=== PATIENT | female | born 1975 | race Caucasian/White ===

== ENCOUNTER 2016-08-21 16:32 | Inpatient (IN) | payer OTHER ==
[~2016-08-21] VITALS: Ht 162.6 cm; Wt 103.5 kg
[~2016-08-21 16:32] MED LIST: AMO500 PO; CEPH-443 PO; NAPR-260 PO; NORG1TAB14 PO; ONDA4TAB8 PO; PROM6.25 PO
[2016-08-21] MEDS ORDERED: SOD CHLORIDE 0.9% 250 ML IV ONE (20:34)
[2016-08-21 21:02] LABS: HEMATOCRIT 16.9 % (37.0-47.0); MEAN CORPUSCULAR HEMOGLOBIN 29.6 pg (29.0-33.0); MEAN CORPUSCULAR HGB CONC 32.7 g/dl (32.0-37.0); MEAN CORPUSCULAR VOLUME 90.4 fl (82.0-101.0); MEAN PLATELET VOLUME 8.6 fl (7.4-10.4); PLATELET COUNT 252 10^3/UL (140-440); RED BLOOD COUNT 1.87 10^6/ul (4.20-5.40); RED CELL DISTRIBUTION WIDTH 14.9 % (11.5-14.5)
[2016-08-21 21:11] LABS: ALBUMIN 3.8 g/dl (3.3-4.9); CONDITION 1; INR 0.93; LH ANALYZER COMMENTS 1; POTASSIUM 3.9 mmol/L (3.5-5.1); PROTIME 12.5 Sec (12.2-14.2)
[2016-08-21 21:12] LABS: PARTIAL THROMBOPLASTIN TIME 21.6 Sec (25.0-35.0)
[2016-08-21 21:13] LABS: BILIRUBIN,INDIRECT 0.1 mg/dl (0-1.1); BILIRUBIN,TOTAL 0.1 mg/dl (0.2-1.3); CREATININE 0.6 mg/dl (0.44-1.00); HEMOGLOBIN 5.5 g/dl (12.0-16.0)
[2016-08-21 21:14] LABS: ALBUMIN/GLOBULIN RATIO 1.22; TOTAL PROTEIN 6.9 g/dl (6.1-8.1)
[2016-08-21 21:52] LABS: EOSINOPHILS # 0.2 10^3/ul (0.0-0.5); LYMPHOCYTES # 2.7 10^3/ul (0.8-2.9); MONOCYTE # 0.9 10^3/ul (0.3-0.9)
[2016-08-21 21:54] LABS: PLATELET ESTIMATE PLT APPEAR ADEQUATE
[2016-08-21] MEDS ORDERED: ONDANSETRON 4 MG INJ IV PRN (23:00)
[2016-08-21] MEDS ORDERED: ACETAMINOPHEN 325 MG TAB PO PRN (23:00)
--- NOTE | 2016-08-21 23:01 | ERA ---
ER Documentation Chief Complaint Date/Time DATE: 08/21/16 TIME: 22:59 Chief Complaint SEVERE VAG BLEED ALSO HAS HGB OF 6.2 HPI Patient is a 41-year-old female with no medical problems who presents with vaginal bleeding. She has been worked up as an outpatient and was already on medicines to help stop her bleeding. However she was seen in the clinic today and had a hemoglobin of 6.2 so she was sent to the ER for admission. She has had bleeding off and on since August 02. She feels short of breath with minimal exertion. Her OB doctor is Dr. Zhou. ROS All systems reviewed and are negative except as per history of present illness. Medications Home Meds Active Scripts Ondansetron Hcl* (Zofran*) 4 Mg Tablet, 4 MG PO Q6H for NAUSEA AND/OR VOMITING, #30 TAB Prov:KEITH GORDON PA-C 08/16/16 Norgestimate-Ethinyl Estradiol (Sprintec 28 Day Tablet) 1 Each Tablet, 1 EACH PO DAILY for 28 Days, TAB Take 3 tablets PO BID for 2 days, then take 2 tablets BID for 2 days then take 1 tablet per day . Skip the last week of pills and start a new pack. Prov:KEITH GORDON PA-C 08/16/16 Naproxen* (Naprosyn*) 500 Mg Tablet, 500 MG PO BID Y for PAIN AND/OR INFLAMMATION, #30 TAB Prov:KEITH GORDON PA-C 08/16/16 Cephalexin* (Keflex*) 500 Mg Capsule, 500 MG PO QID for 7 Days, CAP Prov:KEITH GORDON PA-C 08/16/16 Reported Medications Promethazine Hcl* (Phenergan* Liq) 6.25 Mg/5 Ml Syrup, 25 MG PO TID Y for COUGH , ML 09/12/15 Amoxicillin* (Amoxicillin*) 500 Mg Cap, 500 MG PO BID, #20 CAP 09/12/15 Allergies Allergies: Coded Allergies: No Known Allergy (Verified , 09/15/14) PMhx/Soc History of Surgery: Yes (BTL 2007) Anesthesia Reaction: No Hx Neurological Disorder: No Hx Respiratory Disorders: No Hx Cardiac Disorders: No Hx Psychiatric Problems: No Hx Miscellaneous Medical Probl: No Hx Alcohol Use: Yes (OCCASIONAL) Hx Substance Use: No Hx Tobacco Use: No FmHx Family History: diabetes Physical Exam Vitals Vital Signs Date Time Temp Pulse Resp B/P Pulse Ox O2 Delivery O2 Flow Rate FiO2 08/21/16 16:57 99.7 93 18 119/56 100 Physical Exam Const: No acute distress Head: Atraumatic Eyes: Normal Conjunctiva ENT: Normal External Ears, Nose and Mouth. Neck: Full range of motion..~ No meningismus. Resp: Clear to auscultation bilaterally Cardio: Regular rate and rhythm, no murmurs Abd: Soft, non tender, non distended. Normal bowel sounds Skin: Pale Back: No midline or flank tenderness Ext: No cyanosis, or edema Neur: Awake and alert Result Diagram: 08/21/16205008/21/162050 Results 24 hrs Laboratory Tests Test 08/21/16 20:51 Activated Partial Thromboplast Time 21.6Sec Alanine Aminotransferase (ALT/SGPT) 23IU/L Albumin 3.8g/dl Albumin/Globulin Ratio 1.22 Alkaline Phosphatase 54IU/L Anion Gap 16 Aspartate Amino Transf (AST/SGOT) 16IU/L Band Neutrophils % 2.0% Basophils # 10^3/ul Basophils % % Blood Morphology Comment Blood Urea Nitrogen 10mg/dl Calcium Level 9.0mg/dl Carbon Dioxide Level 24mmol/L Chloride Level 106mmol/L Creatinine 0.60mg/dl Direct Bilirubin 0.00mg/dl Eosinophils # 0.210^3/ul Eosinophils % 1.0% Globulin 3.10g/dl Glucose Level 113mg/dl Hematocrit 16.9% Hemoglobin 5.5g/dl INR International Normalized Ratio 0.93 Indirect Bilirubin 0.1mg/dl Lymphocytes # 2.710^3/ul Lymphocytes % 18.0% Mean Corpuscular Hemoglobin 29.6pg Mean Corpuscular Hemoglobin Concent 32.7g/dl Mean Corpuscular Volume 90.4fl Mean Platelet Volume 8.6fl Monocytes # 0.910^3/ul Monocytes % 6.0% Neutrophils # 11.010^3/ul Neutrophils % 73.0% Nucleated Red Blood Cells # 10^3/ul Nucleated Red Blood Cells % /100WBC Platelet Count 80097^3/UL Platelet Estimate PLT APPEAR ADEQUATE Potassium Level 3.9mmol/L Prothrombin Time 12.5Sec Prothrombin Time Ratio 1.0 Red Blood Count 1.8710^6/ul Red Cell Distribution Width 14.9% Sodium Level 142mmol/L Total Bilirubin 0.1mg/dl Total Protein 6.9g/dl White Blood Count 15.010^3/ul Current Medications Medications (Trade) Dose Ordered Sig/Anil Route PRN Reason Start Time Stop Time Status Last Admin Dose Admin Sodium Chloride (NS) 250 ml @ 0 mls/hr Q0M ONCE IV 08/21/16 20:34 08/21/16 20:35 DC Ondansetron HCl (Zofran Inj) 4 mg BRIDGE ORDER PRN IV NAUSEA AND/OR VOMITING 08/21/16 23:00 08/22/16 22:59 Acetaminophen (Tylenol Tab) 650 mg ER BRIDGE PRN PO MILD PAIN/FEVER 08/21/16 23:00 08/22/16 22:59 Procedures/MDM EKG read by me: Rate/Rhythm: Regular rate and rhythm at a normal rate Intervals: Normal Impression: No evidence of ischemia or arrhythmia Pelvic ultrasound was done just a few days ago. Patient is a 41-year-old female who presents with vaginal bleeding. She was found to have a significantly low hemoglobin of 5.5. She was ordered 2 units of packed red blood cells. She is pale and short of breath. She is symptomatic. She has already failed outpatient treatment and will need admission to a medical surgical bed. She has MERGED WITH [facility] insurance and should be admitted to Dr. Diaz however we were calling Dr. Diaz since 2144 and there was no call back despite multiple calls. Therefore the patient will be admitted to the panel team per our process. I spoke with Dr. White who is graciously willing to admit the patient. I believe the patient is bleeding from dysfunctional uterine bleeding. Her urine test is negative I doubt or ectopic . Critical Care: Time: 35 minutes excluding all billable procedures. Treatments/Evaluations: Close monitoring and treatment of unstable vital signs, cardiorespiratory, and neurologic status, while maintaining tight balance of fluid, respiratory, and cardiac interventions. Departure Diagnosis: Primary Impression: Acute blood loss anemia Additional Impression: Dysfunctional uterine bleeding Condition: MAIDA Segovia MD Aug 21, 2016 23:01
[2016-08-21 23:30] VITALS: TEMP 98.6
[2016-08-22] MEDS ORDERED: DOCUSATE SODIUM 100 MG CAP PO PRN ×2 (00:30→22:30)
[2016-08-22] MEDS ORDERED: MAGNESIUM HYDROXIDE 30ML CUP PO PRN (00:30)
[2016-08-22] MEDS ORDERED: ONDANSETRON 4 MG INJ IV PRN (00:30)
[2016-08-22] MEDS ORDERED: NACL 0.9% 3 ML SYG IV SCH (00:30)
[2016-08-22 03:54] VITALS: BP 117/56; RESP 18
[2016-08-22 04:11] VITALS: Ht 162.6 cm; Wt 103.5 kg
[2016-08-22 04:19] LABS: HEMATOCRIT 21.2 % (37.0-47.0); HEMOGLOBIN 7.1 g/dl (12.0-16.0)
[2016-08-22] MEDS: PANTOPRAZOLE 40 MG INJ IV SCH (06:07)
[2016-08-22] MEDS: SOD CHLORIDE 0.9% 1,000 ML IV SCH (06:07)
[2016-08-22 07:56] VITALS: BP 112/56; RESP 20
--- NOTE | 2016-08-22 10:32 | QN ---
Documentation Comment [id number] DAVID DORMAN MD Aug 22, 2016 10:32
--- NOTE | 2016-08-22 10:53 | HP ---
DATE OF ADMISSION: 08/21/2016 HISTORY OF PRESENT ILLNESS: The patient is a 41-year-old female with history of vaginal bleed, fol lows with Dr. May Jackman as an outpatient, was supposed to be on hormone therapy, presented with recurrent bleeding, symptomatic anemia. Patient's EKG shows sinus rhythm with nonspecific ST-T donnell nges. The patient is going to be monitored for further management. PAST MEDICAL HISTORY: Positive for vaginal bleed. ALLERGY HISTORY: NEGATIVE. FAMILY HISTORY: Noncontributory. SOCIAL HISTORY: Negative. MEDICATIONS AT HOME: Hormone pills, does not know the name. REVIEW OF SYSTEMS: HEENT: Unremarkable. RESPIRATORY: Unremarkable. CARDIOVASCULAR: Unremarkable. ABDOMEN: Unremarkable except as mentioned above. COMMUNICATIONS DESIGNER: As mentioned above. PHYSICAL EXAMINATION: GENERAL: The patient is awake, alert. VITAL SIGNS: Stable. HEAD: Atraumatic, normocephalic. Pupils equal, reactive to light. NECK: Supple. No JVD. LUNGS: Clear. CARDIOVASCULAR: S1, S2 are normal. ABDOMEN: Soft. Mild tenderness in the suprapubic area noted. Otherwise, unremarkable. No palpabl e mass or hepatosplenomegaly. EXTREMITIES: No cyanosis, clubbing, edema. CENTRAL NERVOUS SYSTEM: The patient is awake, alert, no focal deficit. LABORATORY DATA: The patient has ultrasound pelvic done, shows 3.3 cm simple cystic lesion in the r ight ovary, is likely enlarged follicular cyst. Uterus measures 10.8 x 5.6 x 6.7 cm. Endometrial echo complex measures 6.7 with thickness, no discrete lesion is seen. Hemoglobin noted to have sod ium 140, potassium 3.9. Patient's WBC 15, hematocrit 21.2 after transfusion. IMPRESSION: 1. Patient has symptomatic anemia. 2. Atrial bleed. 3. Leukocytosis, probably acute leukemoid reaction. Other diagnoses include incomplete database. PLAN: Admit this patient. Blood transfusions, PPI, SCDs to the legs and COMMUNICATIONS DESIGNER consultation. Orders were done. Dictated By: DAVID DORMAN MD BS/NTS Conf#: [id number] DID#: [id number]
--- NOTE | 2016-08-22 14:04 | CONS ---
DATE OF ADMISSION: 08/21/2016 DATE OF CONSULTATION: 08/22/2016 TYPE OF CONSULTATION: Cardiology. REASON FOR CONSULTATION: Acute myocardial infarction. REQUESTING PHYSICIAN: Dr. Maynor Dorman MD HISTORY OF PRESENT ILLNESS: Ms. Espinoza is a very pleasant 41-year-old female with history of recurr ent vaginal bleed who now presents with heavy vaginal bleeding, ongoing for approximately 1 month pe r patient. Upon arrival temperature 99.7, blood pressure 119/56, pulse 93, respiratory rate 18, sat urating 100%. Patient's labs showed white count 15, hemoglobin of 5.5, platelet count of 252. Sodium 142, potassi um 3.9, creatinine 0.6, BUN 9, AST 16, ALT 23, free T4 1.0. TSH of 3.66. Beta hCG quant less than 2.4. INR 0.93. The patient underwent recent prior pelvic ultrasound August 16 revealing 3.3 cm simple cystic le konstantin in the right ovary. Otherwise, unremarkable pelvic ultrasound. The patient's electrocardiogram revealed normal sinus rhythm, rate of 99, normal axis, borderline in ferior Q, isolated to lead III and inferior T-wave inversions to biphasic T-wave abnormalities as we ll as lateral biphasic T-wave abnormalities. The patient subsequently has been admitted to the floor and since admit to floor has undergone trans fusion of packed RBCs up to 7.1 currently. The patient currently denies chest pain, shortness of br eath. PAST MEDICAL HISTORY: As above in HPI. MEDICATIONS CURRENTLY IN HOSPITAL: 1. Protonix 40 mg IV daily. 2. Zofran p.r.n. 3. Tylenol p.r.n. 4. Colace p.r.n. 5. IV fluid hydration 30 mL an hour. ALLERGIES: NO KNOWN DRUG ALLERGIES. SOCIAL HISTORY: No tobacco, ETOH or illicit drug use. FAMILY HISTORY: No history of sudden cardiac or early CAD. REVIEW OF SYSTEMS: As above in HPI. CONSTITUTIONAL: No fevers, chills. PULMONARY: No current shortness of breath. CARDIOVASCULAR: No current chest pain. GASTROINTESTINAL: No vomiting. GENITOURINARY: No hematuria. MUSCULOSKELETAL: Degenerative joint disease. PSYCHIATRIC: The patient denies depression. NEUROLOGIC: No documented history of CVA. PHYSICAL EXAMINATION VITAL SIGNS: Temperature 98.6, blood pressure most recently 112/56, pulse 76, respiratory rate 20, saturating 98% on room air. GENERAL: The patient today is alert, awake, in no acute distress. NECK: JVP approximately 8 cm water. CHEST: Fair air movement throughout. HEART: Regular rate and rhythm. Normal S1, S2, 1/6 systolic murmur. ABDOMEN: Positive bowel sounds, soft. EXTREMITIES: No pitting edema, 1+ pulses bilaterally posterior tibial. LABORATORIES: As above in HPI with most recently from today, hemoglobin 7.1, TSH of 3.66. Free T4 of 1.09, pulse within normal limits. IMAGING STUDIES: As above in HPI. No further imaging studies for my review at this time. ECG: As above in HPI. No further electrocardiograms for my review at this time. IMPRESSION: 1. Abnormal electrocardiogram, inferior and lateral biphasic abnormalities, assess for acute frey ry syndrome in the setting of severe anemia. 2. Hypertension, borderline. 3. Anemia, severe, status post transfusions. 4. Vaginal bleed. 5. Leukocytosis. RECOMMENDATIONS: 1. At this time, would check serial EKGs to assess for any significant ongoing changes and complete a rule out for myocardial infarction to ensure the patient's EKG abnormalities are not due to any r ecent acute coronary syndrome suffered in the setting of severe anemia. 2. Check a 2D echo to further assess the patient's ejection fraction, wall motion and any major mesha ve abnormalities. 3. Will hold on any antihypertensives at this time and follow blood pressure closely. 4. Check a fasting lipid panel for general risk stratification and initiate lipid-lowering medicati on as necessary. 5. Continue to transfuse packed RBCs as necessary with ongoing evaluation of the patient's vaginal bleed per PMD and alternative consultations. Thank you for allowing me to take part in the care of this patient. I will continue to follow along very closely with you. Further recommendations to be made as the patient progresses through her in patient hospital clinical course. Dictated By: XIMENA SOLANO/MANUEL Conf#: [id number] DID#: [id number] CC: MAYNOR DORMAN MD;*EndCC*
[2016-08-22] MEDS ORDERED: [UNRECOGNIZED DRUG - OTHER] PO SCH (21:00)
[2016-08-22] MEDS ORDERED: NORETHINDRONE 5 MG TAB PO SCH (21:00)
[2016-08-22 21:20] VITALS: BP 117/57; RESP 18
--- NOTE | 2016-08-22 22:02 | CONS ---
Date/Time of Note Date/Time of Note DATE: 08/22/16 TIME: 21:39 Assessment/Plan Assessment/Plan Chief Complaint/Hosp Course Symptomatic anemia due to menometrorrhagia s/p Blood transfusion, symptoms currently resolved Vaginal bleeding likely due to perimenopausal anovulation, can not r/o endometritis as well , s/p EMB per patient was normal. No evidence of thyroid problems. Recommend to start Ayestin 5 mg TID x 3 days then 5 mg BID x 2 days and then continue daily dose Doxycycline 100 mg PO BID x 10 days for treatment of endometritis. Due to patient's large BMI , and potential risk for DVT and PE, recommend progesterone only treatment. Other options, would be Depo provera shot 150 mg IM every 3 month . can be started while the patient is in house if possible. 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 Please contact FLORICULTURE TEACHER for any furthur questions. Thank you for your consultation. Problems: Consultation Date/Type/Reason Admit Date/Time Aug 21, 2016 at 22:58 Date of Consultation: Aug 22, 2016 Type of Consultation: FLORICULTURE TEACHER consultation Reason for Consultation Symptomatic anemia due to menometrorrhagia Hx of Present Illness 41 years old with history of menometrorrhagia since 04/2016 presented to ED due to symptomatic anemia. Patient reports having continous vaginal bleeding every day that varies in the amount since Jun 2016. Has been seen at Dr. May Schafer and had EMB and pap and was given provera that decreased bleeding when she was on Provera pills. her bleeding recured after she stopped taking provera. She reports has been currenty taking OCP taper since she was admitted, how ever, I do not see any OCP in her list of meds. Patient reports her bleeding currelty moderatly decreased since she was admitted. Had soaked about 2 pads since last night. Has been intermittently passing clots to the size of 4 cm. She currnetly undergoing blood transfusion and denies any dizziness, or lightheadadness. Per patient EMB was benign, how ever her pap was abnormal. She underwent colposcopy and Bx and was told to follow up with repeat paps every 6 mo. She denies any known history of thyroid problems or symptoms, Denies any unintentional weight loss or gain or intolerance to heat or cold. 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 s/p x 3. Last pap: 10/2015, abnormal , underwent colpo and Bx that was benign, was told to repeat paps every 6 mo S/p BTL in 2007 Subjective hx not possible: other (A&O, NAD) Constitutional: no complaints Eyes: no complaints ENT: no complaints Respiratory: no complaints Cardiovascular: no complaints Gastrointestinal: no complaints Genitourinary: bleeding Musculoskeletal: no complaints Skin: no complaints Neurologic: other (Had dizziness that resolved after blood transfusion) Endocrine: no complaints Lymphatic: no complaints Psychological: no complaints Immunologic: no complaints Past Medical History Medical History: no pertinent history Past Surgical History BTL in 2007 S/p tumor removal of left shoulder, benign per patient Family History Significant Family History: no pertinent family hx Social History Alcohol Use: none Smoking Status: Former smoker Drug Use: none Exam/Review of Systems Vital Signs Vitals Vital Signs Date Time Temp Pulse Resp B/P Pulse Ox O2 Delivery O2 Flow Rate FiO2 08/22/16 21:20 98.3 78 18 117/57 98 08/22/16 03:17 Room Air Intake and Output 08/21/16 08/21/16 08/22/16 15:00 23:00 07:00 Output Total 600 ml Balance -600 ml Exam Constitutional: alert, oriented, well developed Psych: nl mood/affect, no complaints Head: atraumatic, normocephalic Eyes: EOMI, nl conjunctiva, nl lids ENMT: nl external ears & nose, nl lips & teeth, nl nasal mucosa & septum Neck: non-tender, supple Respiratory: clear to auscultation, normal air movement Cardiovascular: nl pulses, regular rate and rhythm Gastrointestinal: nl liver, spleen, non-tender, soft Genitourinary - Female: nl adnexae, nl external genitalia, other (SSE: there is moderate amount of blood in the vault. about 5 cc clots seen in vault. 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 II-XII intact, nl mental status, nl speech, nl strength Skin: nl turgor, rash or lesions Lymph: nl lymph nodes Results Result Diagram: 08/22/16 0332 08/21/162050 Results 24 hrs Laboratory Tests Test 08/22/16 03:32 08/22/16 17:55 Beta HCG, Quantitative < 2.4 Free Thyroxine 1.09 Hematocrit 21.2 #L Hemoglobin 7.1 #L Thyroid Stimulating Hormone (TSH) 3.660 Troponin I < 0.010 Medications Medications Current Medications Sodium Chloride (NS) 1,000 ml @ 30 mls/hr Q24H IV Last administered on 06:07; Admin Dose 30 MLS/HR; Start 08/22/16 at 00:14 Ondansetron HCl (Zofran Inj) 4 mg Q6H PRN IV NAUSEA AND/OR VOMITING; Start 08/22 at 00:30 Acetaminophen (Tylenol Tab) 650 mg Q6H PRN PO PAIN LEVEL 1-3 OR FEVER; Start at 00:30 Docusate Sodium (Colace) 100 mg Q12H PRN PO CONSTIPATION; Start 08/22/16 at 00: 30 Magnesium Hydroxide (Milk Of Mag) 30 ml DAILY PRN PO CONSTIPATION; Start at 00:30 Pantoprazole (Protonix Iv) 40 mg DAILY@06 IV Last administered on 08/22/16 06: 07; Admin Dose 40 MG; Start 08/22/16 at 06:00 Norethindrone (Aygestin) 5 mg TID PO Last administered on 08/22/16 21:09; Admin Dose 5 MG; Start 08/22/16 at 21:00; Stop 08/25/16 at 13:01 Norethindrone (Aygestin) 5 mg BID PO ; Start 08/25/16 at 21:00; Stop 08/28/16 at 09:01 Norethindrone (Aygestin) 5 mg DAILY PO ; Start 08/29/16 at 09:00 Procedures Procedures Pelvic ultrasound: Small follicular cyst in ovary, otherwise unremarkable. NARCISA PÉREZ MD Aug 22, 2016 21:49
[2016-08-22] MEDS ORDERED: MEDROXYPROGESTERONE 150 MG INJ SYG IM ONE (22:30)
[2016-08-22] MEDS: FERROUS SULFATE (EC) 325 MG TAB PO SCH (23:07)
[2016-08-22] MEDS: DOXYCYCLINE 100 MG TAB PO SCH (23:07)
[2016-08-22] MEDS ORDERED: MEDROXYPROGEST ACET 400 MG/ML VIAL IM SCH (23:45)
[2016-08-23] MEDS: SOD CHLORIDE 0.9% 1,000 ML IV SCH (00:14)
[2016-08-23] MEDS: PANTOPRAZOLE 40 MG INJ IV SCH (05:41)
[2016-08-23 06:03] LABS: CHOL/HDL RATIO 4.6 RATIO
[2016-08-23 06:32] LABS: BASOPHILS % 0.3 % (0.0-2.0); EOSINOPHILS # 0.1 10^3/ul (0.0-0.5); EOSINOPHILS % 1.3 % (0.0-7.0); HEMATOCRIT 25.6 % (37.0-47.0); HEMOGLOBIN 8.8 g/dl (12.0-16.0); LYMPHOCYTES # 1.9 10^3/ul (0.8-2.9); MEAN CORPUSCULAR HEMOGLOBIN 30.8 pg (29.0-33.0); MEAN CORPUSCULAR HGB CONC 34.3 g/dl (32.0-37.0); MEAN CORPUSCULAR VOLUME 89.8 fl (82.0-101.0); MEAN PLATELET VOLUME 9.1 fl (7.4-10.4); MONOCYTE # 0.9 10^3/ul (0.3-0.9); MONOCYTES % 7.8 % (0.0-11.0); NEUTROPHIL # 8.1 10^3/ul (1.6-7.5); NEUTROPHILS % 73.6 % (39.0-77.0); PLATELET COUNT 196 10^3/UL (140-440); RED BLOOD COUNT 2.85 10^6/ul (4.20-5.40); RED CELL DISTRIBUTION WIDTH 14.3 % (11.5-14.5); UNCORRECTED WBC 10.9 10^3/ul (4.8-10.8); WHITE BLOOD COUNT 10.9 10^3/ul (4.8-10.8)
[2016-08-23 06:39] LABS: CONDITION 1
[2016-08-23 06:47] LABS: ALBUMIN 3.2 g/dl (3.3-4.9)
[2016-08-23 06:48] LABS: POTASSIUM 4.2 mmol/L (3.5-5.1)
[2016-08-23 06:50] LABS: ALBUMIN/GLOBULIN RATIO 1.1; BILIRUBIN,INDIRECT 0.3 mg/dl (0-1.1); BILIRUBIN,TOTAL 0.3 mg/dl (0.2-1.3); CALCIUM 8.4 mg/dl (8.4-10.2); CREATININE 0.6 mg/dl (0.44-1.00); TOTAL PROTEIN 6.1 g/dl (6.1-8.1)
[2016-08-23 08:07] VITALS: BP 108/80; RESP 20
[2016-08-23] MEDS: DOXYCYCLINE 100 MG TAB PO SCH ×2 (08:29→21:27)
[2016-08-23] MEDS: FERROUS SULFATE (EC) 325 MG TAB PO SCH ×2 (08:29→21:27)
[2016-08-23] MEDS: ACETAMINOPHEN 325 MG TAB PO PRN ×2 (08:31→14:47)
[2016-08-23 10:31] LABS: ADD UMIC YES; URINE BILIRUBIN (Dip) NEGATIVE (NEGATIVE); URINE BLOOD (Dip) 3+ (NEGATIVE); URINE COLOR RED (YELLOW); URINE GLUCOSE (Dip) NEGATIVE (NEGATIVE); URINE KETONES (Dip) NEGATIVE (NEGATIVE); URINE LEUKOCYTE ESTERASE (Dip) NEGATIVE (NEGATIVE); URINE NITRITE (Dip) NEGATIVE (NEGATIVE); URINE TOTAL PROTEIN (Dip) 2+ (NEGATIVE); URINE UROBILINOGEN (Dip) 0.2 E.U./dL (0.1-1.0)
[2016-08-23 10:52] LABS: BACTERIA,URINE OCCASIONAL; URINE RBCS >200 /HPF (0)
--- NOTE | 2016-08-23 13:44 | CONS ---
Date/Time of Note Date/Time of Note DATE: 08/23/16 TIME: 13:41 Assessment/Plan Assessment/Plan Chief Complaint/Hosp Course IMPRESSION: 1. Abnormal electrocardiogram, inferior and lateral biphasic abnormalities, assess for acute coronary syndrome in the setting of severe anemia.-negative trop x 3 2. Hypertension, borderline. 3. Anemia, severe, status post transfusions. 4. Vaginal bleed. 5. Leukocytosis. 6>dysliidemia Recc: -serial ecg's -Will f/u echo -transfuse PRBC's as necessary -ongoing hosiery mater eval Problems: Consultation Date/Type/Reason Admit Date/Time Aug 21, 2016 at 22:58 Initial Consult Date 08/22/16 Type of Consultation: Cardiology Reason for Consultation abnl ecg Referring Provider: DAVID DORMAN MD Exam/Review of Systems Vital Signs Vitals Vital Signs Date Time Temp Pulse Resp B/P Pulse Ox O2 Delivery O2 Flow Rate FiO2 08/23/16 08:07 98.1 72 20 108/80 99 08/22/16 03:17 Room Air Intake and Output 08/22/16 08/22/16 08/23/16 15:00 23:00 07:00 Intake Total 1950 ml 1320 ml Output Total 1700 ml 750 ml Balance 250 ml 570 ml Exam Review of Systems: CONSTITUTIONAL: No fevers, chills. PULMONARY: mild sob CARDIOVASCULAR: No chest pain/palpitations GASTROINTESTINAL: No nausea/vomiting. GENITOURINARY: No hematuria/dysuria. MUSCULOSKELETAL: No myagias/arthalgias. PSYCHIATRIC: The patient denies depression. NEUROLOGIC: mild weakness Constitutional: alert, oriented Psych: no complaints Head: normocephalic ENMT: mucosa pink and moist Neck: jvd (9 cm water), supple Respiratory: clear to auscultation Cardiovascular: regular rate and rhythm Gastrointestinal: non-tender, soft Musculoskeletal: muscle tone (normal) Extremities: edema (none) Neurological: other (ano focal deficits) Results Result Diagram: 08/23/16 0510 08/23/16 0510 Results 24 hrs Laboratory Tests Test 08/22/16 17:55 08/23/16 00:40 08/23/16 05:10 08/23/16 07:23 Troponin I < 0.010 < 0.012 < 0.012 Alanine Aminotransferase (ALT/SGPT) 15 Albumin 3.2 L Albumin/Globulin Ratio 1.10 Alkaline Phosphatase 44 Anion Gap 14 Aspartate Amino Transf (AST/SGOT) 28 Basophils # 0.0 Basophils % 0.3 Blood Urea Nitrogen 7 Calcium Level 8.4 Carbon Dioxide Level 23 Chloride Level 108 Cholesterol Level 144 Cholesterol/HDL Ratio 4.6 Creatinine 0.60 Direct Bilirubin 0.00 Eosinophils # 0.1 Eosinophils % 1.3 Globulin 2.90 Glucose Level 75 HDL Cholesterol 31 L Hematocrit 25.6 #L Hemoglobin 8.8 #L Indirect Bilirubin 0.3 LDL Cholesterol, Calculated 77 Lymphocytes # 1.9 Lymphocytes % 17.0 Mean Corpuscular Hemoglobin 30.8 Mean Corpuscular Hemoglobin Concent 34.3 Mean Corpuscular Volume 89.8 Mean Platelet Volume 9.1 Monocytes # 0.9 Monocytes % 7.8 Neutrophils # 8.1 H Neutrophils % 73.6 Nucleated Red Blood Cells # 0.0 Nucleated Red Blood Cells % 0.0 Platelet Count 196 # Potassium Level 4.2 Red Blood Count 2.85 #L Red Cell Distribution Width 14.3 Sodium Level 141 Total Bilirubin 0.3 Total Protein 6.1 Triglycerides Level 180 H White Blood Count 10.9 #H Urine Bacteria OCCASIONAL Urine Bilirubin NEGATIVE Urine Clarity SLIGHTLY CLOUDY Urine Color RED Urine Epithelial Cells OCCASIONAL Urine Glucose NEGATIVE Urine Hemoglobin 3+ H Urine Ketones NEGATIVE Urine Leukocyte Esterase NEGATIVE Urine Microscopic RBC >200 Urine Microscopic WBC 2-5 Urine Nitrite NEGATIVE Urine Specific [place] 1.015 Urine Total Protein 2+ H Urine Urobilinogen 0.2 E.U./dL Urine pH 6.0 Medications Medications Current Medications Sodium Chloride (NS) 1,000 ml @ 30 mls/hr Q24H IV Last administered on 06:07; Admin Dose 30 MLS/HR; Start 08/22/16 at 00:14 Ondansetron HCl (Zofran Inj) 4 mg Q6H PRN IV NAUSEA AND/OR VOMITING; Start 08/22 at 00:30 Acetaminophen (Tylenol Tab) 650 mg Q6H PRN PO PAIN LEVEL 1-3 OR FEVER Last administered on 08/23/16 08:31; Admin Dose 650 MG; Start 08/22/16 at 00:30 Docusate Sodium (Colace) 100 mg Q12H PRN PO CONSTIPATION; Start 08/22/16 at 00: 30 Magnesium Hydroxide (Milk Of Mag) 30 ml DAILY PRN PO CONSTIPATION; Start at 00:30 Pantoprazole (Protonix Iv) 40 mg DAILY@06 IV Last administered on 08/23/16 05: 41; Admin Dose 40 MG; Start 08/22/16 at 06:00 Doxycycline Hyclate (Vibramycin) 100 mg BID PO Last administered on 08/23/16 08 :29; Admin Dose 100 MG; Start 08/22/16 at 23:00 Ferrous Sulfate (Ferrous Sulfate (Ec)) 325 mg BID PO Last administered on 08:29; Admin Dose 325 MG; Start 08/22/16 at 22:30 Docusate Sodium (Colace) 100 mg BID PRN PO CONSTIPATION; Start 08/22/16 at 22:30 Norethindrone (Aygestin) 5 mg BID PO ; Start 08/23/16 at 21:00; Stop 08/26/16 at 09:01 XIMENA JEONG Aug 23, 2016 13:44
--- NOTE | 2016-08-23 14:22 | RADRPT ---
Echocardiogram Report Patient Name: MALLORY NEGRO Gender: Female Date: 1975 Study Date: 22-Aug-2016 Director College: Monisha Wall [facility] Location: 2260 Ref. Physician: XIMENA SEAMAN Quality: Good Procedures: Transthoracic echocardiogram with complete 2D, M-Mode, and doppler examination. Indications: Abnormal EKG. 2D/M Mode Doppler Measurement Value Normal Ranges Measurement Value Normal Ranges LVIDd 2D 4.9 3.5 - 5.6 cm AV Peak Derrick 1.6 m/sec LVIDs 2D 2.3 2.1 - 4.1 cm AV Peak PG 9.9 mmHg LVPWd 2D 0.7 0.6 - 1.1 cm LVOT Peak Derrick 1.2 m/sec IVSd 2D 0.7 0.6 - 1.1 cm LVOT Peak PG 5.3 mmHg AoR Diam 2D 2.5 2.0 - 3.7 cm MV E Peak Derrick 1.1 m/sec EDV 2D 113.3 cm3 MV A Peak Derrick 0.7 m/sec ESV 2D 12.2 cm3 MV E/A 1.5 LA Dimen 2D 3.3 2.3 - 4.0 cm MV Decel Time 125 msec MV Decel Hickman 9 MV E/A 1.5 Findings Left Ventricle: Normal left ventricular systolic function. Normal left ventricular cavity size. Normal left ventricular wall thickness. Ejection fraction is visually estimated at 5560 %. Tissue Doppler/Mitral Doppler indices are within normal limits. Right Ventricle: Normal right ventricular size. Normal right ventricular systolic function. Left Atrium: The left atrium is normal in size. Right Atrium: The right atrium is normal in size. Mitral Valve: Normal appearance of the mitral valve. Mild mitral annular calcification. Trace mitral regurgitation. Aortic Valve: Normal appearance of the aortic valve. No significant aortic stenosis or insufficiency. Tricuspid Valve: Normal appearance of the tricuspid valve. Unable to obtain RVSP due to minimal presence of tricuspid regurgitation. Pericardium: Normal pericardium with no significant pericardial effusion. Aorta: Normal aortic root. IVC: Normal size and normal respiratory collapse consistent with normal right atrial pressure. Conclusions 1.Normal left ventricular systolic function. Normal left ventricular cavity size. Normal left ventricular wall thickness. Ejection fraction is visually estimated at 55-60 %. Tissue Doppler/Mitral Doppler indices are within normal limits. 2.Normal appearance of the mitral valve. Mild mitral annular calcification. Trace mitral regurgitation. 3.Normal appearance of the tricuspid valve. Unable to obtain RVSP due to minimal presence of tricuspid regurgitation. Electronically Signed By: Ximena Seaman 23-Aug-2016 14:21:23 -0800 Patient Name: MALLORY NEGRO Study Date: 22-Aug-2016 [id number]
[2016-08-23 20:33] VITALS: BP 105/54; RESP 20
[2016-08-23] MEDS: NORETHINDRONE 5 MG TAB PO SCH (21:27)
--- NOTE | 2016-08-23 21:42 | RADRPT ---
PROCEDURE: XR Chest. CLINICAL INDICATION: Shortness of breath TECHNIQUE: Single AP portable chest COMPARISON: None FINDINGS: The cardiomediastinal silhouette is within normal limits. The lungs are clear without pleural effus ion or focal consolidation. No pneumothorax. The osseous structures and soft tissues are unremarkab le. IMPRESSION: No evidence for active cardiopulmonary disease. RPTAT:AAJJ Physician Sharita Date Time Electronically viewed and signed by Physician Sharita on 08/23/2016 21:41 CRISTAL/
[2016-08-24] MEDS: SOD CHLORIDE 0.9% 1,000 ML IV SCH (02:12)
[2016-08-24] MEDS: PANTOPRAZOLE 40 MG INJ IV SCH (05:22)
[2016-08-24 06:12] LABS: BASOPHILS % 0.4 % (0.0-2.0); EOSINOPHILS # 0.2 10^3/ul (0.0-0.5); EOSINOPHILS % 1.5 % (0.0-7.0); HEMATOCRIT 25.1 % (37.0-47.0); HEMOGLOBIN 8.6 g/dl (12.0-16.0); LYMPHOCYTES % 19.4 % (15.0-51.0); MEAN CORPUSCULAR HEMOGLOBIN 30.6 pg (29.0-33.0); MEAN CORPUSCULAR HGB CONC 34.1 g/dl (32.0-37.0); MEAN CORPUSCULAR VOLUME 89.9 fl (82.0-101.0); MEAN PLATELET VOLUME 8.9 fl (7.4-10.4); MONOCYTE # 0.9 10^3/ul (0.3-0.9); NEUTROPHIL # 7.3 10^3/ul (1.6-7.5); NEUTROPHILS % 69.7 % (39.0-77.0); PLATELET COUNT 199 10^3/UL (140-440); RED BLOOD COUNT 2.79 10^6/ul (4.20-5.40); RED CELL DISTRIBUTION WIDTH 15.3 % (11.5-14.5); UNCORRECTED WBC 10.4 10^3/ul (4.8-10.8); WHITE BLOOD COUNT 10.4 10^3/ul (4.8-10.8)
[2016-08-24 06:18] LABS: CONDITION 1; LH ANALYZER COMMENTS 1
[2016-08-24 07:40] VITALS: BP 112/65; RESP 20
[2016-08-24] MEDS: FERROUS SULFATE (EC) 325 MG TAB PO SCH ×2 (08:21→21:04)
[2016-08-24] MEDS: ACETAMINOPHEN 325 MG TAB PO PRN (08:21)
[2016-08-24] MEDS: NORETHINDRONE 5 MG TAB PO SCH ×2 (08:21→21:04)
[2016-08-24] MEDS: DOXYCYCLINE 100 MG TAB PO SCH ×2 (08:21→21:04)
--- NOTE | 2016-08-24 12:53 | CONS ---
Date/Time of Note Date/Time of Note DATE: 08/24/16 TIME: 12:50 Assessment/Plan Assessment/Plan Chief Complaint/Hosp Course IMPRESSION: 1. Abnormal electrocardiogram, inferior and lateral biphasic abnormalities, assess for acute coronary syndrome in the setting of severe anemia.-negative trop x 3 2. Hypertension, borderline. 3. Anemia, severe, status post transfusions. 4. Vaginal bleed. 5. Leukocytosis. 6. dysliidemia 7. Palpitations-NL TSH. 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 eval Problems: Consultation Date/Type/Reason Admit Date/Time Aug 21, 2016 at 22:58 Initial Consult Date 08/22/16 Type of Consultation: Cardiology Reason for Consultation abnl ecg/palpitations Referring Provider: DAVID DORMAN MD Exam/Review of Systems Vital Signs Vitals Vital Signs Date Time Temp Pulse Resp B/P Pulse Ox O2 Delivery O2 Flow Rate FiO2 08/24/16 07:40 98.9 74 20 112/65 99 08/22/16 03:17 Room Air Intake and Output 08/23/16 08/23/16 08/24/16 15:00 23:00 07:00 Intake Total 1160 ml 600 ml Output Total 900 ml 300 ml Balance 260 ml 300 ml Exam Review of Systems: CONSTITUTIONAL: No fevers, chills. PULMONARY: No sob CARDIOVASCULAR: C/O palpitations GASTROINTESTINAL: No nausea/vomiting. GENITOURINARY: No hematuria/dysuria. MUSCULOSKELETAL: No myagias/arthalgias. PSYCHIATRIC: The patient denies depression. NEUROLOGIC: No weakness Constitutional: alert, oriented Psych: no complaints Head: normocephalic ENMT: mucosa pink and moist Neck: jvd, supple Respiratory: diminished breath sounds Cardiovascular: regular rate and rhythm Gastrointestinal: non-tender, soft Musculoskeletal: muscle tone Extremities: edema (none) Neurological: other (No focval deficits) Results Result Diagram: 08/24/16 0445 08/23/16 0510 Results 24 hrs Laboratory Tests Test 08/24/16 04:45 Basophils # 0.0 Basophils % 0.4 Blood Morphology Comment Eosinophils # 0.2 Eosinophils % 1.5 Hematocrit 25.1 L Hemoglobin 8.6 L Lymphocytes # 2.0 Lymphocytes % 19.4 Mean Corpuscular Hemoglobin 30.6 Mean Corpuscular Hemoglobin Concent 34.1 Mean Corpuscular Volume 89.9 Mean Platelet Volume 8.9 Monocytes # 0.9 Monocytes % 9.0 Neutrophils # 7.3 Neutrophils % 69.7 Nucleated Red Blood Cells # 0.0 Nucleated Red Blood Cells % 0.0 Platelet Count 199 Red Blood Count 2.79 L Red Cell Distribution Width 15.3 H White Blood Count 10.4 Medications Medications Current Medications Sodium Chloride (NS) 1,000 ml @ 30 mls/hr Q24H IV Last administered on 02:12; Admin Dose 30 MLS/HR; Start 08/22/16 at 00:14 Ondansetron HCl (Zofran Inj) 4 mg Q6H PRN IV NAUSEA AND/OR VOMITING; Start 08/22 at 00:30 Acetaminophen (Tylenol Tab) 650 mg Q6H PRN PO PAIN LEVEL 1-3 OR FEVER Last administered on 08/24/16 08:21; Admin Dose 650 MG; Start 08/22/16 at 00:30 Docusate Sodium (Colace) 100 mg Q12H PRN PO CONSTIPATION; Start 08/22/16 at 00: 30 Magnesium Hydroxide (Milk Of Mag) 30 ml DAILY PRN PO CONSTIPATION; Start at 00:30 Pantoprazole (Protonix Iv) 40 mg DAILY@06 IV Last administered on 08/24/16 05: 22; Admin Dose 40 MG; Start 08/22/16 at 06:00 Doxycycline Hyclate (Vibramycin) 100 mg BID PO Last administered on 08/24/16 08 :21; Admin Dose 100 MG; Start 08/22/16 at 23:00 Ferrous Sulfate (Ferrous Sulfate (Ec)) 325 mg BID PO Last administered on 08:21; Admin Dose 325 MG; Start 08/22/16 at 22:30 Docusate Sodium (Colace) 100 mg BID PRN PO CONSTIPATION; Start 08/22/16 at 22:30 Norethindrone (Aygestin) 5 mg BID PO Last administered on 08/24/16 08:21; Admin Dose 5 MG; Start 08/23/16 at 21:00; Stop 08/26/16 at 09:01 XIMENA JEONG Aug 24, 2016 12:53
--- NOTE | 2016-08-24 17:19 | PN ---
Date/Time of Note Date/Time of Note DATE: 08/24/16 TIME: 17:17 Assessment/Plan VTE Prophylaxis VTE Prophylaxis Intervention: other Lines/Catheters IV Catheter Type (from Nrs): Peripheral IV Urinary Cath still in place: No Assessment/Plan Chief Complaint/Hosp Course anemia vaginal bleed plan ck cbc Problems: Subjective 24 Hr Interval Summary Gastrointestinal: no complaints Exam/Review of Systems Vital Signs Vitals Vital Signs Date Time Temp Pulse Resp B/P Pulse Ox O2 Delivery O2 Flow Rate FiO2 08/24/16 07:40 98.9 74 20 112/65 99 08/22/16 03:17 Room Air Intake and Output 08/23/16 08/23/16 08/24/16 15:00 23:00 07:00 Intake Total 1160 ml 600 ml Output Total 900 ml 300 ml Balance 260 ml 300 ml Exam Respiratory: clear to auscultation Cardiovascular: regular rate and rhythm Gastrointestinal: soft Musculoskeletal: nl extremities to inspection Extremities: normal pulses Results Result Diagram: 08/24/16 0445 08/23/16 0510 Results 24 hrs Laboratory Tests Test 08/24/16 04:45 Basophils # 0.0 Basophils % 0.4 Blood Morphology Comment Eosinophils # 0.2 Eosinophils % 1.5 Hematocrit 25.1 L Hemoglobin 8.6 L Lymphocytes # 2.0 Lymphocytes % 19.4 Mean Corpuscular Hemoglobin 30.6 Mean Corpuscular Hemoglobin Concent 34.1 Mean Corpuscular Volume 89.9 Mean Platelet Volume 8.9 Monocytes # 0.9 Monocytes % 9.0 Neutrophils # 7.3 Neutrophils % 69.7 Nucleated Red Blood Cells # 0.0 Nucleated Red Blood Cells % 0.0 Platelet Count 199 Red Blood Count 2.79 L Red Cell Distribution Width 15.3 H White Blood Count 10.4 Medications Medications Current Medications Sodium Chloride (NS) 1,000 ml @ 30 mls/hr Q24H IV Last administered on 02:12; Admin Dose 30 MLS/HR; Start 08/22/16 at 00:14 Ondansetron HCl (Zofran Inj) 4 mg Q6H PRN IV NAUSEA AND/OR VOMITING; Start 08/22 at 00:30 Acetaminophen (Tylenol Tab) 650 mg Q6H PRN PO PAIN LEVEL 1-3 OR FEVER Last administered on 08/24/16 08:21; Admin Dose 650 MG; Start 08/22/16 at 00:30 Docusate Sodium (Colace) 100 mg Q12H PRN PO CONSTIPATION; Start 08/22/16 at 00: 30 Magnesium Hydroxide (Milk Of Mag) 30 ml DAILY PRN PO CONSTIPATION; Start at 00:30 Pantoprazole (Protonix Iv) 40 mg DAILY@06 IV Last administered on 08/24/16 05: 22; Admin Dose 40 MG; Start 08/22/16 at 06:00 Doxycycline Hyclate (Vibramycin) 100 mg BID PO Last administered on 08/24/16 08 :21; Admin Dose 100 MG; Start 08/22/16 at 23:00 Ferrous Sulfate (Ferrous Sulfate (Ec)) 325 mg BID PO Last administered on 08:21; Admin Dose 325 MG; Start 08/22/16 at 22:30 Docusate Sodium (Colace) 100 mg BID PRN PO CONSTIPATION; Start 08/22/16 at 22:30 Norethindrone (Aygestin) 5 mg BID PO Last administered on 08/24/16 08:21; Admin Dose 5 MG; Start 08/23/16 at 21:00; Stop 08/26/16 at 09:01 Metoprolol Tartrate (Lopressor) 12.5 mg BID PO ; Start 08/24/16 at 21:00 DAVID DORMAN MD Aug 24, 2016 17:18
[2016-08-24 19:45] VITALS: BP 123/63; RESP 20
[2016-08-24] MEDS: METOPROLOL 25 MG TAB PO SCH (21:06)
[2016-08-24 23:00] VITALS: BP 118/68; PULSE 71; RESP 18
[2016-08-25] MEDS: SOD CHLORIDE 0.9% 1,000 ML IV SCH (00:14)
[2016-08-25 03:30] VITALS: BP 118/57; PULSE 75; RESP 18
[2016-08-25] MEDS: PANTOPRAZOLE 40 MG INJ IV SCH (05:30)
[2016-08-25 06:54] LABS: BASOPHILS % 0.3 % (0.0-2.0); EOSINOPHILS # 0.1 10^3/ul (0.0-0.5); EOSINOPHILS % 1.1 % (0.0-7.0); HEMATOCRIT 31.3 % (37.0-47.0); HEMOGLOBIN 10.6 g/dl (12.0-16.0); LYMPHOCYTES # 1.8 10^3/ul (0.8-2.9); LYMPHOCYTES % 16.5 % (15.0-51.0); MEAN CORPUSCULAR HEMOGLOBIN 30.2 pg (29.0-33.0); MEAN CORPUSCULAR HGB CONC 33.7 g/dl (32.0-37.0); MEAN CORPUSCULAR VOLUME 89.6 fl (82.0-101.0); MEAN PLATELET VOLUME 9.1 fl (7.4-10.4); MONOCYTE # 0.9 10^3/ul (0.3-0.9); MONOCYTES % 7.9 % (0.0-11.0); NEUTROPHIL # 8.2 10^3/ul (1.6-7.5); NEUTROPHILS % 74.2 % (39.0-77.0); PLATELET COUNT 217 10^3/UL (140-440); RED CELL DISTRIBUTION WIDTH 15.4 % (11.5-14.5); UNCORRECTED WBC 11.1 10^3/ul (4.8-10.8); WHITE BLOOD COUNT 11.1 10^3/ul (4.8-10.8)
[2016-08-25 06:56] LABS: CONDITION 1; LH ANALYZER COMMENTS 1
[2016-08-25 07:20] VITALS: BP 112/62; RESP 18
[2016-08-25] MEDS: NORETHINDRONE 5 MG TAB PO SCH ×2 (09:08→21:01)
[2016-08-25] MEDS: DOXYCYCLINE 100 MG TAB PO SCH ×2 (09:08→21:01)
[2016-08-25] MEDS: METOPROLOL 25 MG TAB PO SCH ×2 (09:10→21:03)
[2016-08-25] MEDS: FERROUS SULFATE (EC) 325 MG TAB PO SCH ×2 (09:10→21:01)
--- NOTE | 2016-08-25 13:42 | PN ---
Date/Time of Note Date/Time of Note DATE: 08/25/16 TIME: 13:39 Assessment/Plan VTE Prophylaxis VTE Prophylaxis Intervention: SCD's Lines/Catheters IV [facility] Peripheral IV Urinary Cath still in place: No Assessment/Plan Assessment/Plan 1. Severe symptomatic anemia s/p PRBC 2. severe DUB 3. Menometrorrhagia 4. acute endometritis Plan: Doxycycline antibiotoic aygestrin for DUB follow up with [facility] as outpatient Subjective 24 Hr Interval Summary Free Text/Dictation afebrile, received depo shot during this admission Exam/Review of Systems Vital Signs Vitals Vital Signs Date Time Temp Pulse Resp B/P Pulse Ox O2 Delivery O2 Flow Rate FiO2 08/25/16 07:20 97.9 75 18 112/62 100 08/25/16 03:30 Room Air Intake and Output 08/24/16 08/24/16 08/25/16 15:00 23:00 07:00 Intake Total 540 ml 680 ml Balance 540 ml 680 ml Exam Constitutional: alert Psych: no complaints Head: normocephalic Neck: supple Respiratory: clear to auscultation Cardiovascular: regular rate and rhythm Gastrointestinal: soft Results Result Diagram: 08/25/16 0555 08/23/16 0510 Results 24 hrs Laboratory Tests Test 08/25/16 05:55 Basophils # 0.0 Basophils % 0.3 Blood Morphology Comment Eosinophils # 0.1 Eosinophils % 1.1 Hematocrit 31.3 #L Hemoglobin 10.6 #L Lymphocytes # 1.8 Lymphocytes % 16.5 Mean Corpuscular Hemoglobin 30.2 Mean Corpuscular Hemoglobin Concent 33.7 Mean Corpuscular Volume 89.6 Mean Platelet Volume 9.1 Monocytes # 0.9 Monocytes % 7.9 Neutrophils # 8.2 H Neutrophils % 74.2 Nucleated Red Blood Cells # 0.0 Nucleated Red Blood Cells % 0.0 Platelet Count 217 Red Blood Count 3.50 #L Red Cell Distribution Width 15.4 H White Blood Count 11.1 H Medications Medications Current Medications Sodium Chloride (NS) 1,000 ml @ 30 mls/hr Q24H IV Last administered on t 02:12; Admin Dose 30 MLS/HR; Start 08/22/16 at 00:14 Ondansetron HCl (Zofran Inj) 4 mg Q6H PRN IV NAUSEA AND/OR VOMITING; Start 08/22 at 00:30 Acetaminophen (Tylenol Tab) 650 mg Q6H PRN PO PAIN LEVEL 1-3 OR FEVER Last administered on 08/24/16 08:21; Admin Dose 650 MG; Start 08/22/16 at 00:30 Docusate Sodium (Colace) 100 mg Q12H PRN PO CONSTIPATION; Start 08/22/16 at 00: 30 Magnesium Hydroxide (Milk Of Mag) 30 ml DAILY PRN PO CONSTIPATION; Start at 00:30 Pantoprazole (Protonix Iv) 40 mg DAILY@06 IV Last administered on 08/25/16 05: 30; Admin Dose 40 MG; Start 08/22/16 at 06:00 Doxycycline Hyclate (Vibramycin) 100 mg BID PO Last administered on 08/25/16 09 :08; Admin Dose 100 MG; Start 08/22/16 at 23:00 Ferrous Sulfate (Ferrous Sulfate (Ec)) 325 mg BID PO Last administered on 09:10; Admin Dose 325 MG; Start 08/22/16 at 22:30 Docusate Sodium (Colace) 100 mg BID PRN PO CONSTIPATION; Start 08/22/16 at 22:30 Norethindrone (Aygestin) 5 mg BID PO Last administered on 08/25/16 09:08; Admin Dose 5 MG; Start 08/23/16 at 21:00; Stop 08/26/16 at 09:01 Metoprolol Tartrate (Lopressor) 12.5 mg BID PO Last administered on 08/25/16 09 :10; Admin Dose 12.5 MG; Start 08/24/16 at 21:00 JUANY LU MD Aug 25, 2016 13:42
--- NOTE | 2016-08-25 13:44 | PDOCDIS ---
Discharge Instructions CONDITION Patient Condition: Good HOME CARE INSTRUCTIONS: Special Diet: Regular ACTIVITY: Activity Restrictions: No Restrictions Slowly Increase Activity Rest between Activity Avoid heavy lifting Avoid Heavy Housework FOLLOW UP/APPOINTMENTS Appointments Follow up with her own [facility] [facility] as outpatient in 1-2 week after discharge. Follow up with her own PMD through HMO Insurance in 2-3 week after discharge JUANY LU MD Aug 25, 2016 13:43
[2016-08-25] MEDS ORDERED: DOXY100T2 PO (13:46)
[2016-08-25] MEDS ORDERED: FER325 PO (13:46)
[2016-08-25] MEDS ORDERED: [UNRECOGNIZED DRUG - CODE] PO (13:46)
--- NOTE | 2016-08-25 14:25 | CONS ---
Date/Time of Note Date/Time of Note DATE: 08/25/16 TIME: 14:24 Assessment/Plan Assessment/Plan Additional Assessment/Plan 1. Abnormal electrocardiogram, inferior and lateral biphasic abnormalities, assess for acute coronary syndrome in the setting of severe anemia.-negative trop x 3 - doubt ischemic disease 2. Hypertension, borderline- better Rx now. 3. Anemia, severe, status post transfusions- better H./H now. 4. Vaginal bleed. 5. Leukocytosis- primary team follows. 6. dysliidemia 7. Palpitations-NL TSH. NL EF by echo Consultation Date/Type/Reason Admit Date/Time Aug 21, 2016 at 22:58 Initial Consult Date 08/22/16 Type of Consultation: Cardiology Referring Provider: DAVID DORMAN MD 24 HR Interval Summary Free Text/Dictation No acute events - doing better today. ROS: No fever, no chills, no nausea, no vomiting, no diarrhea/constipation No recent weight changes No chest pain, no PND, no orthopnea No dizziness, blurred vision No thirst, no heat or cold intolerance Exam/Review of Systems Vital Signs Vitals Vital Signs Date Time Temp Pulse Resp B/P Pulse Ox O2 Delivery O2 Flow Rate FiO2 08/25/16 07:20 97.9 75 18 112/62 100 08/25/16 03:30 Room Air Intake and Output 08/24/16 08/24/16 08/25/16 15:00 23:00 07:00 Intake Total 540 ml 680 ml Balance 540 ml 680 ml Exam General: WN/WD/NAD, AOx 3 HEENT: Unicetric/atraumatic/EOMI (follows commands) NECK: JVD elevated, no thyromegaly Lymph: no lymphadenopathy HEART: regular with no S3, II/ systolic murmur at apex LUNGS: Coarse sounds ABD: soft, NT, ND, +BS : Intact Neuro: non focal SKIN: chronic changes EXT: trace edema Results Result Diagram: 08/25/16 0555 08/23/16 0510 Results 24 hrs Laboratory Tests Test 08/25/16 05:55 Basophils # 0.0 Basophils % 0.3 Blood Morphology Comment Eosinophils # 0.1 Eosinophils % 1.1 Hematocrit 31.3 #L Hemoglobin 10.6 #L Lymphocytes # 1.8 Lymphocytes % 16.5 Mean Corpuscular Hemoglobin 30.2 Mean Corpuscular Hemoglobin Concent 33.7 Mean Corpuscular Volume 89.6 Mean Platelet Volume 9.1 Monocytes # 0.9 Monocytes % 7.9 Neutrophils # 8.2 H Neutrophils % 74.2 Nucleated Red Blood Cells # 0.0 Nucleated Red Blood Cells % 0.0 Platelet Count 217 Red Blood Count 3.50 #L Red Cell Distribution Width 15.4 H White Blood Count 11.1 H Medications Medications Current Medications Ondansetron HCl (Zofran Inj) 4 mg Q6H PRN IV NAUSEA AND/OR VOMITING; Start 08/22 at 00:30 Acetaminophen (Tylenol Tab) 650 mg Q6H PRN PO PAIN LEVEL 1-3 OR FEVER Last administered on 08/24/16 08:21; Admin Dose 650 MG; Start 08/22/16 at 00:30 Docusate Sodium (Colace) 100 mg Q12H PRN PO CONSTIPATION; Start 08/22/16 at 00: 30 Magnesium Hydroxide (Milk Of Mag) 30 ml DAILY PRN PO CONSTIPATION; Start at 00:30 Pantoprazole (Protonix Iv) 40 mg DAILY@06 IV Last administered on 08/25/16 05: 30; Admin Dose 40 MG; Start 08/22/16 at 06:00 Doxycycline Hyclate (Vibramycin) 100 mg BID PO Last administered on 08/25/16 09 :08; Admin Dose 100 MG; Start 08/22/16 at 23:00 Ferrous Sulfate (Ferrous Sulfate (Ec)) 325 mg BID PO Last administered on 09:10; Admin Dose 325 MG; Start 08/22/16 at 22:30 Docusate Sodium (Colace) 100 mg BID PRN PO CONSTIPATION; Start 08/22/16 at 22:30 Norethindrone (Aygestin) 5 mg BID PO Last administered on 08/25/16 09:08; Admin Dose 5 MG; Start 08/23/16 at 21:00; Stop 08/26/16 at 09:01 Metoprolol Tartrate (Lopressor) 12.5 mg BID PO Last administered on 08/25/16 09 :10; Admin Dose 12.5 MG; Start 08/24/16 at 21:00 [place] HA MD Aug 25, 2016 14:25
[2016-08-25 19:29] VITALS: BP 119/65; RESP 20
[2016-08-25] MEDS ORDERED: NORETHINDRONE 5 MG TAB PO SCH (21:00)
--- NOTE | 2016-08-26 22:07 | DS ---
DATE OF ADMISSION: 08/21/2016 DATE OF DISCHARGE: 08/25/2016 FINAL DISCHARGE DIAGNOSES: 1. Severe symptomatic anemia, status post packed red blood cell transfusions secondary to dysfuncti onal uterine bleeding. 2. Severe dysfunctional uterine bleeding. 3. Menometrorrhagia 4. Acute endometritis. CONSULTATIONS DONE DURING THIS HOSPITALIZATION: CLIENT PROFESSIONAL Oncology consultation, Dr. Isis Grove. HOSPITAL COURSE: This is a 41-year-old female who has a past medical history of dysfunctional uteri ne bleeding, presented with severe symptomatic anemia. The patient was noted to have a hemoglobin o f 5.5. She received multiple PRBC transfusions for severe symptomatic anemia. She had a CLIENT PROFESSIONAL consul tation done and was diagnosed with menometrorrhagia and also had acute endometritis for which she wa s prescribed for IV doxycycline. She remained hemodynamically stable during this hospitalization. The patient was seen by CLIENT PROFESSIONAL consultation, and she was started on a medication called Aygestin with a tapering dose. The patient was recommended to have outpatient followup. She has already been foll owing with outpatient CLIENT PROFESSIONAL followup. She understood, verbalized understanding, and she is given pres criptions of doxycycline and Aygestin. DISPOSITION: To home. DISCHARGE CONDITION: Stable, improved compared to admission. DISCHARGE ACTIVITIES: As tolerated. Slowly resume to the normal baseline activity. DISCHARGE DIET: Low-fat, low-sodium diet. DISCHARGE MEDICATIONS: As per medical reconciliation. DISCHARGE FOLLOWUP INSTRUCTIONS: The patient is to follow up with her own primary care doctor sofia gh her HMO insurance 1 to 2 weeks after discharge. She is also advised to follow up with a CLIENT PROFESSIONAL phys marti. She already has established followup through her HMO as outpatient. Dictated By: JUANY LU MD, KP/MANUEL Conf#: [id number] DID#: [id number]
[2016-08-29] MEDS ORDERED: NORETHINDRONE 5 MG TAB PO SCH (09:00)
== END 2016-08-25 21:36 | disposition home or self-care (01) | DRG 758 ==
LOC: FTE 16:32 → PP2 22:58
PROVIDERS: ADMIT Internal Medicine Nephrology; ATTEND Internal Medicine Nephrology
PROC: 30233N1 Transfusion of Nonautologous Red Blood Cells into Peripheral Vein, Percutaneous Approach (ICD-10-PCS; 2016-08-21)
PROC: 30233N1 Transfusion of Nonautologous Red Blood Cells into Peripheral Vein, Percutaneous Approach (ICD-10-PCS; 2016-08-22)
PROC: 30233N1 Transfusion of Nonautologous Red Blood Cells into Peripheral Vein, Percutaneous Approach (ICD-10-PCS; principal; 2016-08-24)
DX: N71.0 Acute inflammatory disease of uterus (principal); D62 Acute posthemorrhagic anemia; I10 Essential (primary) hypertension; N92.1 Excessive and frequent menstruation with irregular cycle; N93.8 Other specified abnormal uterine and vaginal bleeding; E78.5 Hyperlipidemia, unspecified
CPT/HCPCS: 36415; 36430; 71010; 80053; 80061; 81001; 81003; 84439; 84443; 84484; 84702; 85014; 85018; 85025; 85610; 85730; 86850; 86900; 86901; 86920; 93005; 93306; C9113; J7030; J7040; P9016

== ENCOUNTER 2018-06-08 14:54 | Emergency (ER) | END 2018-06-08 17:05 | disposition home or self-care (01) ==